=== PATIENT | male | born 1990 | race Caucasian/White ===

== ENCOUNTER 2017-08-28 09:13 | Emergency (ER) | payer BC ==
[~2017-08-28] VITALS: Ht 182.9 cm; Wt 100.0 kg
[~2017-08-28 09:13] MED LIST: AMLO10TA2 PO; IBUP1TAB7 PO; LEVO1CAP3 PO; ROBA750T PO
[2017-08-28 09:14] VITALS: BP 160/86; PULSE 72; RESP 16; TEMP 97.7; O2SAT 97
[2017-08-28] MEDS ORDERED: BUPR100CR PO (09:38)
--- NOTE | 2017-08-28 10:10 | PD ---
HPI . Nausea Chief Complaint: GI Complaint Time Seen by Provider: 09:58 Travel History International Travel<30 days: No Contact w/Intl Traveler<30days: No Traveled to known affect area: No History of Present Illness HPI This patient presents with the chief complaint of nausea. He reports he onset of nausea with occasional vomiting and dizziness, headache and subjective fever/ chills slightly 3 days ago. He states that his symptoms come and go. He states that his symptoms were worse last night preventing him from sleeping. Symptoms have been mild and has had no known modifying factors. He has not taken anything for his symptoms. He has had no known sick exposures. [facility], [facility] Past Medical History Anxiety: Yes Depression: Yes Social History Alcohol Use: Yes ([facility]) Tobacco Use: No Substance Use: No Allergies-Medications (Allergen,Severity, Reaction): Coded Allergies: No Known Allergies (Unverified Adverse Reaction, Unknown, 08/28/17) Reported Meds & Prescriptions Reported Meds & Active Scripts Active Reported Wellbutrin SR 12 HR (Bupropion HCl) 100 Mg Tab 100 Mg PO Q12HR Review of Systems Except as stated in HPI: all other systems reviewed are Neg General / Constitutional: Positive: Fever, Chills HENT: Positive: Headaches, Lightheadedness Gastrointestinal: Positive: Nausea, Vomiting, Constipation, No: Diarrhea Genitourinary: Positive: Decreased Urinary Output Physical Exam Narrative Vital Signs Date Time Temp Pulse Resp B/P (MAP) Pulse Ox O2 Delivery O2 Flow Rate FiO2 08/28/17 09:14 97.7 72 16 160/86 (110) 97 GENERAL: Awake and alert and in no acute distress. SKIN: Warm and dry. Good color and turgor. HEAD: Normocephalic/atraumatic. Positive scalp tenderness. EYES: Pupils are equal. Extraocular movements are intact. NECK: Normal range of motion. Supple and without cervical lymphadenopathy. CARDIOVASCULAR: Regular rate and rhythm. Heart sounds are normal. RESPIRATORY: Nonlabored respirations. Lungs are clear with good air movement throughout. ABDOMEN: Soft and nontender. MUSCULOSKELETAL: Atraumatic. NEUROLOGICAL: A and O 3. Cranial nerves II through XII are grossly intact. He is moving all 4 extremities equally with normal coordination. PSYCHIATRIC: Appropriate mood and affect. Data Data Last Documented VS Vital Signs Date Time Temp Pulse Resp B/P (MAP) Pulse Ox O2 Delivery O2 Flow Rate FiO2 08/28/17 09:14 97.7 72 16 160/86 (110) 97 Orders Orders Diphenhydramine Inj (Benadryl Inj) (08/28/17 10:15) Prochlorperazine Inj (Compazine Inj) (08/28/17 10:15) Sodium Chlor 0.9% 1000 Ml Inj (Ns 1000 M (08/28/17 10:15) MDM Medical Decision Making Medical Screen Exam Complete: Yes Emergency Medical Condition: Yes Differential Diagnosis Differential diagnosis of headache includes but is not limited to migraine, muscle contraction headache, brain tumor, brain bleed, viral illness, meningitis Narrative Course This patient presents with a chief complaint of nausea and headache. He has associated subjective fevers and chills. He probably has a viral illness. I will treat him with a liter of fluid and IV Compazine/Benadryl. The patient has been resting comfortably. He will be discharged home. Diagnosis Primary Impression: Viral syndrome Additional Impression: Headache Qualified Codes: R51 - Headache Patient Instructions: Acute Headache (DC), General Instructions, Viral Syndrome (DC) Med/Other Pt SpecificInfo: Prescription(s) given Scripts Ibuprofen (Ibuprofen) 800 Mg Tab 800 MG PO Q8H Y for Pain/Inflammation, #60 TAB 0 Refills Prov: Meghan Tatum MD 08/28/17 Disposition: 01 DISCHARGE HOME Condition: Stable Meghan Tatum MD Aug 28, 2017 10:10
[2017-08-28] MEDS ORDERED: diphenhydrAMINE HCL 50 MG/ML VIAL IV PUSH ONE (10:15)
[2017-08-28] MEDS ORDERED: SODIUM CHLOR 0.9% 1000 ML INJ 1,000 ML IV ONE (10:15)
[2017-08-28] MEDS ORDERED: PROCHLORPERAZINE INJ 10 MG/2 ML VIAL IV PUSH ONE (10:15)
[2017-08-28] MEDS ORDERED: IBUP1TAB7 PO (11:50)
== END 2017-08-28 12:14 | disposition home or self-care (01) ==
LOC: NEPD 09:13
DX: B34.9 Viral infection, unspecified (principal); R51 Headache
CPT/HCPCS: 96361; 96374; 96375; 99284; J0780; J1200; J7030